=== PATIENT | male | born 1990 | race Caucasian/White ===

== ENCOUNTER 2023-08-02 07:21 | Emergency (ER) | payer BC ==
[2023-08-02] MEDS ORDERED: cefTRIAXone (ROCEPHIN) 250 MG VIAL ONE (08:37)
[2023-08-02] MEDS ORDERED: glipiZIDE 5 MG TAB ONE (09:34)
== END 2023-08-02 09:45 | disposition home or self-care (01) ==
LOC: NAV ERS 07:21
DX: N49.2 Inflammatory disorders of scrotum (principal); E11.9 Type 2 diabetes mellitus without complications; I10 Essential (primary) hypertension
CPT/HCPCS: 36416; 87070; 87077; 87205; 99283; J0696

== ENCOUNTER 2024-02-04 10:46 | Outpatient (CLI) | payer BC | END 2024-02-04 10:47 | disposition home or self-care (01) | LOC: NAV RAD 10:46 | PROVIDERS: ATTEND Family Medicine | DX: R20.2 Paresthesia of skin (principal); M47.816 Spondylosis without myelopathy or radiculopathy, lumbar region | CPT/HCPCS: 72100 ==